=== PATIENT | male | born 1960 | race Caucasian/White ===

== ENCOUNTER 2019-03-11 09:57 | Day surgery (SDC) | payer BC ==
[~2019-03-11 09:57] MED LIST: BUPIVACAINE MPF 0.5% 30 ML VIAL. ONE; DEXAMETHASONE SOD PHOS 4 MG/ML VIAL ONE; LIDOCAINE 1% 20 ML VIAL. ONE; LIDOCAINE 2% PF 5 ML VIAL. ONE; ONDANSETRON PF 4 MG/2 ML VIAL. ONE; PROPOFOL 20 ML IV ONE; fentaNYL PF VIAL 100 MCG/2 ML VIAL ONE
[2019-03-11] MEDS ORDERED: PHEN100C PO ×2 (10:41)
[2019-03-11] MEDS ORDERED: AMLO5TAB10 PO (10:41)
[2019-03-11] MEDS ORDERED: IV RINGERS,LACTATED 1000ML 1,000 ML IV SCH (10:43)
[2019-03-11] MEDS ORDERED: fentaNYL PF VIAL 100 MCG/2 ML VIAL IV PRN (10:45)
[2019-03-11] MEDS ORDERED: LIDOCAINE 1% PF 2 ML VIAL. ID PRN (10:45)
[2019-03-11] MEDS ORDERED: MIDAZOLAM HCL/PF 2 MG/2 ML VIAL. IV PRN (10:45)
[2019-03-11] MEDS ORDERED: fentaNYL PF VIAL 100 MCG/2 ML VIAL ONE (12:09)
[2019-03-11] MEDS ORDERED: PROPOFOL 20 ML IV ONE (12:18)
--- NOTE | 2019-03-11 13:14 | PDOC4 ---
Operative Note Operative Note Due to procedure: 03/11/2019 Surgeon: Aristeo Mclaughlin.: first deyanira Wilson Preoperative diagnosis: Closed right bimalleolar ankle fracture Postoperative diagnosis: Same Procedure performed: Open reduction internal fixation right bimalleolar ankle fracture Anesthesia: Gen. 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 He was seen in the emergency department, splinted and sent to my clinic. I discussion of the risks, benefits, alternatives with him and he elected proceed with surgery. Description of procedure: Patient was greeted in the preoperative area by myself for the correct extremity was verified and marked. Taken to the operative suite and started on antibiotics as he was brought back. Once in the operative room, transferred gently supine to the operating room table and secured the bed with all pressure points padded and had successful induction of a general anesthetic. We then proceeded to take down the splint and scrub his leg. We placed a bump under his right hip. Nonsterile tourniquet was applied to his right thigh. Right lower extremity is prepped and draped in our usual sterile fashion we conducted our standard preoperative timeout. I then palpated and marked surface anatomy and sheeba lines for my plan skin incisions. Extremity was exsanguinated with an Esmarch and tourniquet insufflated to 250 mmHg. I incised skin laterally and dissected subcutaneous tissues tissue and incised fashion line with the skin incision, using electrocautery for hemostasis. I used a periosteal elevator to expose the fibula and fracture site in anticipation my plate application. I externally rotated the ankle and pulled gentle traction on the distal fragment with a dental pick to debride the fracture site of hematoma using a small Rominger, curet and metal tipped suction device. He had about a 2 cm x 1 cm free floating segment of cancellus bone which was blocking my reduction so I removed this. After this, I was able to use a [id number]-[id number] reduction forceps and direct manipulation of the fracture to facilitate reduction. I then sized and placed my plate against bone and checked my C-arm images. I then secured the plate to the bone proximally and distally with a nonlocking screw. I then placed a screw and leg fashion followed by locking screws distally and nonlocking screws proximally. I then directed my attention to incising skin over his medial malleolus. After this, I used electrocautery to dissect subcutaneous tissues tissue followed by Kamilla. Identified the fracture site and again pulled traction and debrided the fracture site and irrigated out the ankle joint. After I remove some periosteum which was blocking reduction was able to cedeno it back in quite well I felt and placed 2 guide pins into the distal tibia. I then measured and drilled and placed my 2 cannulated screws. I then removed my guide pins. I took my final images and an external rotation stress view, this was negative. I then irrigated out the incisions and closed fascia with simple interrupted 2-0 Vicryl laterally followed by inverted interrupted 20 at both incisions for subcutaneous tissue and 3-0 nylon in a mattress fashion of both incisions. I then infiltrated the subcutaneous tissues tissue with local anesthetic mixture. The leg was cleansed and dried sterile bulky soft dressing was applied followed by an AO splint. Prior to wound closure, all cons correct 2. No complications. Patient tolerated surgery well. At the conclusion, he was awakened and transferred gently supine to the recovery room cart and taken to the PACU in a stable and x-ray condition. Postoperative plan is to discharge him home, nonweightbearing. I'll see him back in 2 weeks, sooner should a problem arise ARISTEO GONZALES II, MD Mar 11, 2019 13:14
[2019-03-11] MEDS: fentaNYL PF VIAL 100 MCG/2 ML VIAL IV PRN ×2 (13:51→13:59)
--- NOTE | 2019-03-11 14:00 | DISCH ---
DISCHARGE INSTRUCTIONS Condition on Discharge Condition on Discharge: Stable Activity After Discharge Activity Instructions for Disc: Other, see below Bathing Instructions: Shower-keep dressing dry Weight Bearing Status after Di: Non weight bearing Diet after Discharge Diet after Discharge: Regular Wound Incision Care Wound/Incision Care: Ice to area for comfort, Keep wound/cast CDI, Keep wound elevated, Do not change dressing Other wound/incision instructi: leave splint intact Contacting the DR. after DC Call your doctor for: Concerns you may have Follow-Up Follow up with: Dyan in 2 wks RADHA GONZALES II, MD Mar 11, 2019 14:00
[2019-03-11] MEDS ORDERED: MORPHINE SULFATE 2 MG/ML VIAL. IV PRN (14:30)
[2019-03-11] MEDS ORDERED: KETOROLAC 30 MG/ML VIAL. IVP ONE (14:30)
[2019-03-11] MEDS ORDERED: DOCU50CA9 PO (14:34)
[2019-03-11] MEDS ORDERED: OXYC-325 PO (14:34)
[2019-03-11] MEDS ORDERED: ONDA4TAB7 PO (14:35)
[2019-03-11] MEDS ORDERED: oxyCODONE/APAP 5/325 1 TAB TABLET PO ONE (15:00)
[2019-03-11 15:10] VITALS: BP 146/88
== END 2019-03-11 15:45 | disposition home or self-care (01) ==
LOC: SURG 09:57
PROVIDERS: ATTEND Orthopaedic Surgery Sports Medicine
DX: S82.841A Displaced bimalleolar fracture of right lower leg, initial encounter for closed fracture (principal); X58.XXXA Exposure to other specified factors, initial encounter; Y93.89 Activity, other specified; Y92.89 Other specified places as the place of occurrence of the external cause; Y99.8 Other external cause status; Z98.890 Other specified postprocedural states; Z72.0 Tobacco use
CPT/HCPCS: 27814; 76000; 97161; A7015; C1713; J0696; J1100; J1885; J2001; J2270; J2405; J2704; J3010; J3490